=== PATIENT | male | born 2000 | race Hispanic/Latino ===

== ENCOUNTER 2023-09-26 03:01 | Inpatient (IN) | payer BC, SELFPAY ==
[~2023-09-26] VITALS: Ht 170.2 cm; Wt 55.4 kg
[2023-09-26 03:49] LABS: HEMATOCRIT 50.3 % (42.0-52.0); MEAN CORPUSCULAR HEMOGLOBIN 31.1 pg (27.0-33.0); MEAN CORPUSCULAR HGB CONC 35.8 g/dl (32.0-36.5); PLATELET COUNT, AUTOMATED 256 10^3/uL (150-450); RED BLOOD COUNT 5.78 10^6/uL (4.30-6.10); WHITE BLOOD COUNT 14.4 10^3/uL (4.0-10.0)
[2023-09-26 03:52] LABS: APPEARANCE, URINE CLEAR (CLEAR); BACTERIA, URINE AUTO NEGATIVE (NEGATIVE); BILIRUBIN, URINE AUTO NEGATIVE (NEGATIVE); BLOOD, URINE BLOOD NEGATIVE (NEGATIVE); COLOR, URINE STRAW (YELLOW); GLUCOSE, URINE (UA) AUTO 1+ mg/dL (NEGATIVE); KETONE, URINE AUTO NEGATIVE (NEGATIVE); LEUKOCYTE ESTERASE, URINE AUTO NEGATIVE (NEGATIVE); NITRITE, URINE AUTO NEGATIVE (NEGATIVE); PROTEIN, URINE AUTO NEGATIVE (NEGATIVE); RBC, URINE AUTO 0 /HPF (0-3); SPECIFIC GRAVITY URINE AUTO 1.001 (1.002-1.035); SQUAMOUS EPITHELIAL CELL UR AU 0 /HPF (0-6); UROBILINOGEN, URINE AUTO 0.2 mg/dL (0.0-2.0); WBC, URINE AUTO 0 /HPF (0-3)
[2023-09-26 04:07] LABS: AMPHETAMINES LEVEL URINE NEGATIVE (NEGATIVE); BARBITURATES URINE NEGATIVE (NEGATIVE); BENZODIAZEPINES URINE NEGATIVE (NEGATIVE); CANNABINOIDS URINE NEGATIVE (NEGATIVE); COCAINE METABOLITE URINE NEGATIVE (NEGATIVE); METHADONE URINE NEGATIVE (NEGATIVE); OPIATES URINE NEGATIVE (NEGATIVE); PHENCYCLIDINE URINE NEGATIVE (NEGATIVE)
[2023-09-26 04:08] LABS: ETHYL ALCOHOL (ETHANOL) < 0.003 % (0.000-0.010)
[2023-09-26 04:10] LABS: ALBUMIN 5.1 G/DL (3.2-5.2); ALKALINE PHOSPHATASE 59 U/L (46-116); ALT/SGPT 12 U/L (7.0-40); AST/SGOT 12 U/L (<34); BILIRUBIN,DIRECT 0.7 MG/DL (<0.4); BLOOD UREA NITROGEN 9 MG/DL (9-23); CALCIUM LEVEL 10.1 MG/DL (8.5-10.1); CARBON DIOXIDE LEVEL 22 MMOL/L (20-31); CHLORIDE LEVEL 107 MMOL/L (98-107); CREATININE FOR GFR 0.53 MG/DL (0.70-1.30); GLOMERULAR FILTRATION RATE > 60.0 (>60); GLUCOSE, FASTING 103 MG/DL (60-100); SALICYLATE LEVEL < 3.0 MG/DL (<30); SODIUM LEVEL 137 MMOL/L (136-145); TOTAL PROTEIN 7.9 G/DL (5.7-8.2)
[2023-09-26 04:12] LABS: THYROID STIMULATING HORMONE 2.955 uIU/ML (0.55-4.78)
[2023-09-26] MEDS ORDERED: HOME MED LIST COMPLETE! XX SCH (06:15)
[2023-09-26] MEDS ORDERED: diphenhydrAMINE 25MG CAP PO PRN (08:30)
[2023-09-26] MEDS ORDERED: MAALOX 30 ML SUSP *UDC PO PRN (08:30)
[2023-09-26] MEDS ORDERED: MOM 30ML SUSPENSION UDC PO PRN (08:30)
[2023-09-26] MEDS ORDERED: OLANZapine ORAL DISINTEGRATING TAB 5MG PO PRN (08:30)
[2023-09-26] MEDS ORDERED: ACETAMINOPHEN TAB 650MG DOSE (2X325MG) PO PRN (08:30)
[2023-09-26 11:25] VITALS: BP 118/87; TEMP 97.7; O2SAT 100
[2023-09-26 17:03] VITALS: BP 103/55; TEMP 99.4; O2SAT 100
[2023-09-27 06:37] VITALS: BP 136/71; TEMP 98.6; O2SAT 98
[2023-09-27] MEDS: IBUPROFEN 400MG TAB PO PRN (12:03)
[2023-09-27] MEDS: OLANZapine 5 MG TAB PO SCH ×2 (14:30→21:00)
[2023-09-27 16:21] VITALS: BP 127/72; TEMP 99.4; O2SAT 100
[2023-09-27] MEDS: traZODone 50 MG TAB PO PRN (21:22)
[2023-09-28 06:40] VITALS: BP 101/58; TEMP 97.4; O2SAT 100
[2023-09-28] MEDS: OLANZapine 5 MG TAB PO SCH ×2 (09:00→21:00)
[2023-09-29 06:48] VITALS: BP 111/60; TEMP 98.3; O2SAT 99
[2023-09-29] MEDS: OLANZapine 5 MG TAB PO SCH ×2 (09:00→21:20)
[2023-09-29] MEDS: traZODone 50 MG TAB PO PRN (21:21)
[2023-09-30 06:41] VITALS: BP 112/61; TEMP 97.1; O2SAT 100
[2023-09-30] MEDS: OLANZapine 5 MG TAB PO SCH ×2 (09:51→20:44)
[2023-09-30 18:50] VITALS: BP 101/57; TEMP 97.7; O2SAT 97
[2023-09-30] MEDS: traZODone 50 MG TAB PO PRN (20:44)
[2023-10-01 05:54] VITALS: BP 115/72; TEMP 98.3; O2SAT 98
[2023-10-01] MEDS: OLANZapine 5 MG TAB PO SCH ×2 (08:42→21:00)
[2023-10-01 18:56] VITALS: BP 119/62; TEMP 98; O2SAT 97
[2023-10-02 06:17] VITALS: BP 127/58; TEMP 98; O2SAT 97
[2023-10-02] MEDS: OLANZapine 5 MG TAB PO SCH ×2 (09:00→21:00)
[2023-10-02] MEDS ORDERED: OLANZapine 10 MG TAB PO ONE (10:55)
[2023-10-02 16:45] VITALS: BP 132/80; TEMP 98; O2SAT 97
[2023-10-03 05:48] VITALS: BP 111/63; TEMP 98.3; O2SAT 98
[2023-10-03] MEDS: OLANZapine 5 MG TAB PO SCH (08:45)
[2023-10-03 16:00] VITALS: BP 126/70; TEMP 98.9; O2SAT 99
[2023-10-03] MEDS ORDERED: OLANZapine 5 MG TAB PO SCH (21:00)
[2023-10-04 06:15] VITALS: BP 112/62; TEMP 98.3
[2023-10-04] MEDS ORDERED: OLANZapine 10 MG TAB PO SCH (09:00)
[2023-10-04] MEDS: risperiDONE 1 MG TAB PO SCH ×2 (09:54→21:20)
[2023-10-04 16:29] VITALS: BP 138/72; TEMP 97.6; O2SAT 100
[2023-10-04] MEDS: traZODone 50 MG TAB PO PRN (21:20)
[2023-10-05 06:20] VITALS: BP 141/78; TEMP 97.8; O2SAT 96
[2023-10-05] MEDS: risperiDONE 1 MG TAB PO SCH ×2 (09:11→21:17)
[2023-10-05 16:20] VITALS: BP 110/60; TEMP 98.3; O2SAT 100
[2023-10-05] MEDS: IBUPROFEN 400MG TAB PO PRN (18:50)
[2023-10-06 06:15] VITALS: BP 131/78; TEMP 97.8; O2SAT 98
[2023-10-06] MEDS: risperiDONE 1 MG TAB PO SCH ×2 (09:20→21:09)
[2023-10-06 15:53] VITALS: BP 106/60; TEMP 98.2; O2SAT 100
[2023-10-07 06:13] VITALS: BP 136/68; TEMP 98.3; O2SAT 99
[2023-10-07] MEDS: risperiDONE 1 MG TAB PO SCH (09:29)
[2023-10-07 17:18] VITALS: BP 137/63; TEMP 98.7
[2023-10-07] MEDS: risperiDONE 2 MG TAB PO SCH (21:45)
[2023-10-08 06:33] VITALS: BP 132/67; TEMP 97.9; O2SAT 98
[2023-10-08] MEDS: risperiDONE 1 MG TAB PO SCH (09:45)
[2023-10-08 19:08] VITALS: BP 143/91; TEMP 98; O2SAT 97
[2023-10-08] MEDS: risperiDONE 2 MG TAB PO SCH (21:51)
[2023-10-09 06:46] VITALS: BP 107/63; TEMP 98.7; O2SAT 100
[2023-10-09] MEDS: risperiDONE 1 MG TAB PO SCH (09:45)
[2023-10-09 19:03] VITALS: BP 126/80; TEMP 98
[2023-10-09] MEDS: risperiDONE 2 MG TAB PO SCH (21:23)
[2023-10-09] MEDS: traZODone 50 MG TAB PO PRN (21:23)
[2023-10-10 06:05] VITALS: BP 96/56; TEMP 98; O2SAT 99
[2023-10-10] MEDS: risperiDONE 1 MG TAB PO SCH (09:01)
[2023-10-10] MEDS ORDERED: RISP1TAB42 PO (10:15)
[2023-10-10] MEDS ORDERED: RISP-9 PO (10:15)
[2023-10-10] MEDS ORDERED: TRAZ-252 PO (10:15)
== END 2023-10-10 12:22 | disposition home or self-care (01) | DRG 751 ==
LOC: M ED 03:01 → M ED INP 08:27 → M PSY 11:35
PROVIDERS: ADMIT Student in an Organized Health Care Education/Training Program; ATTEND Student in an Organized Health Care Education/Training Program
DX: F29 Unspecified psychosis not due to a substance or known physiological condition (principal); D72.829 Elevated white blood cell count, unspecified